=== PATIENT | male | born 2000 | race African-American/Black ===

== ENCOUNTER 2019-02-20 13:22 | Emergency (ER) | payer SELFPAY ==
[2019-02-20 13:41] VITALS: BP 120/46; PULSE 62; TEMP 98.1; BMI 24.3
--- NOTE | 2019-02-20 13:41 | PDOC ---
Rapid Medical Evaluation Time Seen by Provider: 02/20/19 13:39 Medical Evaluation: 02/20/19 13:39 Pt presents with L elbow pain s/p fall while playing basketball Exam: L arm in sling. Equal b/l radial pulses Orders: Elbow x-ray Pt to proceed to the ED for further evaluation Discharge Disposition - Diagnosis Left elbow pain - Referrals - Patient Instructions - Post Discharge Activity
--- NOTE | 2019-02-20 15:20 | PDOC ---
History of Present Illness - General Chief Complaint: Injury Stated Complaint: LT ELBOW INJURY Time Seen by Provider: 02/20/19 13:39 History Source: Patient Exam Limitations: No Limitations (L elbow pain s/p fall while playing basketball today) Past History - Travel Traveled outside of the country in the last 30 days: No Close contact w/someone who was outside of country & ill: No - Past Medical History Allergies/Adverse Reactions: Allergies Allergy/AdvReac Type Severity Reaction Status Date / Time No Known Allergies Allergy Verified 02/20/19 13:40 Home Medications: Ambulatory Orders Acetaminophen 975 mg PO ASDIR 02/20/19 Albuterol Sulfate [Proventil HFA Inhaler -] 1 - 2 inh PO TID 02/20/19 Divalproex [Depakote -] 250 mg PO DAILY 02/20/19 Ibuprofen 600 mg PO ACDIN 7 Days #21 tablet 02/20/19 Asthma: Yes COPD: No Seizures: Yes - Suicide/Smoking/Psychosocial Hx Smoking History: Never smoked Review of Systems - Review of Systems Is the patient limited Kiswahili proficient: No Constitutional: No: Chills, Fever Musculoskeletal: Yes: Joint Pain. No: Joint Swelling Integumentary: Yes: Other (laceration to lateral elbow) *Physical Exam - Vital Signs Last Vital Signs Temp Pulse Resp BP Pulse Ox 98.1 F 62 18 120/46 L 99 02/20/19 13:39 02/20/19 13:39 02/20/19 13:39 02/20/19 13:39 02/20/19 13:39 - Physical Exam General Appearance: Yes: Nourished Respiratory/Chest: positive: Lungs Clear, Normal Breath Sounds Cardiovascular: positive: Regular Rhythm, Regular Rate, S1, S2 Extremity: positive: Normal Capillary Refill, Normal Inspection, Normal Range of Motion, Tender (tenderness in olecranon process of L elbow, no swelling noted , FROM), Other (pulses intact) Integumentary: positive: Other (2cm superfical laceration noted in lateral elbow ) Neurologic: positive: class b driver II-XII NML intact, Fully Oriented, Alert Procedures - Laceration/Wound Repair Left Elbow Wound's Depth, Shape: superficial Irrigated w/ Saline: Yes Betadine Prep: Yes Wound Repaired With: Dermabond Medical Decision Making - Medical Decision Making 02/20/19 15:17 L elbow pain and laceration s/p fall while playing basketball, tetanus UTD. R hand dominant xray ordered wound closure with dermabond 02/20/19 16:30 xray neg *DC/Admit/Observation/Transfer Diagnosis at time of Disposition: Left elbow pain Laceration of elbow Qualifiers: Encounter type: initial encounter Laterality: left Qualified Code(s): S51.012A - Laceration without foreign body of left elbow, initial encounter - Discharge Dispostion Disposition: HOME Condition at time of disposition: Stable Decision to Admit order: No - Prescriptions Prescriptions: Ibuprofen 600 mg PO ACDIN 7 Days #21 tablet - Referrals - Patient Instructions Printed Discharge Instructions: DI for Laceration Repair With Dermabond, DI for Elbow Pain Additional Instructions: I discussed the physical exam findings, ancillary test results and final diagnoses with the patient. I answered all of the patient's questions. The patient was satisfied with the care received and felt comfortable with the discharge plan and treatment plan. The patient will call their primary care physician within 24 hours to arrange follow-up and will return to the Emergency Department with any new, persistant or worsening symptoms. - Post Discharge Activity
== END 2019-02-20 16:07 | disposition home or self-care (01) ==
LOC: JERFT 13:22
PROC: 0HQEXZZ Repair Left Lower Arm Skin, External Approach (ICD-10-PCS; principal; 2019-02-20)
DX: S51.012A Laceration without foreign body of left elbow, initial encounter (principal); X58.XXXA Exposure to other specified factors, initial encounter; Y93.67 Activity, basketball; Y92.9 Unspecified place or not applicable; J45.909 Unspecified asthma, uncomplicated
CPT/HCPCS: 73070-TC-LT-FY; 99281-25